=== PATIENT | female | born 1960 | race Two or more races ===

== ENCOUNTER → 2023-04-04 | Emergency (ER) | payer OTHER ==
[~2023-04-04] VITALS: Ht 160 cm; Wt 79.8 kg
[~2023-04-04] MED LIST: CLONAZEPAM0.25 MG; CYTOMEL5 MCG PO; DICLOFENAC SODI50 MG PO; KEPPRA750 MG; LAMICTAL25 MG; LEXAPRO20 MG PO; PRESERVISION A1 EAC1; TOPAMAX200 MG PO
[2023-04-04 15:15] LABS: HEMOGLOBIN 11.8 g/dL (12.0-15.00); MEAN CELL VOLUME 91.2 fL (80.00-100.00); MEAN CORPUSCULAR HGB CONC 32.9 g/dl (32.0-36.0); PLATELET COUNT 222 K/uL (150-450); RED BLOOD COUNT 3.94 M/uL (4.00-6.00); RED CELL DISTRIBUTION WIDTH 14.9 % (11.5-14.5)
[2023-04-04 15:15] LABS: URINE APPEARANCE Clear; URINE BILIRRUBIN Negative (NEGATIVE); URINE BLOOD Negative; URINE COLOR Yellow; URINE GLUCOSE Negative (NEGATIVE); URINE LEUKOCYTE Negative; URINE NITRATE Negative; URINE PROTEIN Negative (NEGATIVE)
[2023-04-04 15:16] LABS: URINE BACTERIA 8.8 uL (0.0-1933); URINE EPITHELIAL CELLS 2.2 uL (0.0-38.8); URINE RBC 2.2 uL (0.0-20.8); URINE WBC 3.5 uL (0.0-23.2)
[2023-04-04 15:32] LABS: CALCIUM 8.5 mg/dL (8.5-10.1); CREATININE SERUM 0.86 mg/dL (0.55-1.02); GFR 67.08; POTASSIUM 4.34 mEq/L (3.5-5.1)
== END | disposition home or self-care (01) ==
LOC: ER 13:34 → EDBD 13:34 → ER 13:50
PROVIDERS: Nurse Practitioner Family
DX: R10.2 Pelvic and perineal pain (principal); E11.9 Type 2 diabetes mellitus without complications; K58.8 Other irritable bowel syndrome; K21.9 Gastro-esophageal reflux disease without esophagitis; G40.802 Other epilepsy, not intractable, without status epilepticus; E78.49 Other hyperlipidemia
CPT/HCPCS: 36415; 74176; 96365; 99284; J1885